=== PATIENT | female | born 1990 | race Caucasian/White ===

== ENCOUNTER 2017-04-26 16:23 | Emergency (ER) | payer BC ==
--- NOTE | 2017-04-26 16:38 | PDOC ---
Rapid Medical Evaluation Time Seen by Provider: 04/26/17 16:35 Medical Evaluation: Allergies Allergy/AdvReac Type Severity Reaction Status Date / Time No Known Allergies Allergy Verified 08/04/16 04:30 04/26/17 16:36 I have performed a brief in-person evaluation of this patient. The patient presents with a chief complaint of: Abd pain w/ n/v/d w/ weakness today. Multiple family members w/ similar sxs at home Pertinent physical exam findings:Stable but appears uncomfortable w/ ttp to epigastrium on exam I have ordered the following:cbc/chem/lipase/serum preg The patient will proceed to the ED for further evaluation. 04/26/17 16:38 04/26/17 16:39
[2017-04-26 16:40] VITALS: BMI 29.2
--- NOTE | 2017-04-26 17:03 | PDOC ---
Attending Attestation - Resident Resident Name: Alphonse Salazar - ED Attending Attestation I have performed the following: I have examined & evaluated the patient, The case was reviewed & discussed with the resident, I agree w/resident's findings & plan, Exceptions are as noted
[2017-04-26 17:23] LABS: ALBUMIN 3.8 g/dl (3.4-5.0); ANION GAP 11 (8-16); CALCIUM 8.1 mg/dL (8.5-10.1); CO2 22 mmol/L (21-32); GLUCOSE,RANDOM 78 mg/dL (74-106); SGOT/AST 14 U/L (15-37); SGPT/ALT 26 U/L (12-78)
[2017-04-26 17:25] LABS: ALK PHOS 55 U/L (45-117); BILIRUBIN,TOTAL 0.6 mg/dL (0.2-1.0); CREATININE 0.6 mg/dL (0.55-1.02); TOT PROT 7.5 g/dl (6.4-8.2)
[2017-04-26 17:32] LABS: BASOPHIL 0.5 % (0-2.0); EOSINOPHIL 1.3 % (0-4.5); MCH 28.1 pg (25.7-33.7); MCHC 32.3 g/dl (32.0-36.0); MEAN PLT VOLUME 10.7 fl (7.5-11.1); NEUTROPHILS 68.1 % (42.8-82.8); PLATELET COUNT 222 K/MM3 (134-434); RDW 12.9 % (11.6-15.6); WHITE BLOOD COUNT 12.3 K/mm3 (4.0-10.0)
--- NOTE | 2017-04-26 17:38 | PDOC ---
History of Present Illness - General History Source: Patient Exam Limitations: No Limitations - History of Present Illness Initial Comments: 04/26/17 19:14 The patient is a 27 year old female, with no significant past medical history, who presents to the emergency department complaining of cold-like symptoms for approx. one week. The patient reports dry cough, runny nose and congestion. The patient states the cold like symptoms have been on and off for the past week and she reports one episode of nausea with vomit. She states her son at home and niece are currently sick with similar cold like symptoms. She denies chest pain or shortness of breath. She denies recent fever, chills, headache or dizziness. She denies recent diarrhea or constipation. <Carlos Alberto Brian - Last Filed: 04/26/17 19:24> <Kishan Barraza - Last Filed: 04/27/17 00:26> - General Chief Complaint: Pain Stated Complaint: ABD PAIN Time Seen by Provider: 04/26/17 16:35 Past History <Carlos Alberto Brian - Last Filed: 04/26/17 19:24> - Past Medical History Asthma: Yes COPD: No - Immunization History Immunization Up to Date: Yes - Suicide/Smoking/Psychosocial Hx Smoking Status: No Smoking History: Current some day smoker Have you smoked in the past 12 months: No Number of Cigarettes Smoked Daily: 5 Information on smoking cessation initiated: Yes 'Breaking Loose' booklet given: 04/26/17 Hx Alcohol Use: No Drug/Substance Use Hx: No Substance Use Type: None <Kishan Barraza - Last Filed: 04/27/17 00:26> - Past Medical History Allergies/Adverse Reactions: Allergies Allergy/AdvReac Type Severity Reaction Status Date / Time No Known Allergies Allergy Verified 04/26/17 16:39 Home Medications: Ambulatory Orders Ondansetron [Zofran Odt -] 4 mg SL BID #14 od.tablet 04/26/17 Review of Systems - Review of Systems Comments:: 04/26/17 19:24 ROS: A complete review of 10 out of 10 review of systems is taken and is negative apart from what is previously mentioned below and in the HPI. <Carlos Alberto Brian - Last Filed: 04/26/17 19:24> *Physical Exam - Vital Signs Last Vital Signs Temp Pulse Resp BP Pulse Ox 97.8 F 88 18 124/66 100 04/26/17 16:37 04/26/17 16:37 04/26/17 16:37 04/26/17 16:37 04/26/17 16:37 - Physical Exam Comments: 04/26/17 19:24 Vitals: Triage Vital signs reviewed General Appearance: no acute distress, well nourished well developed Eyes: Pupils equal reactive round, extraocular movement intact Nose: +Nasal congestion. Nares patent bilaterally; Throat: Posterior oropharynx without erythema, mucous membranes moist Neck: Supple; No Nucal rigidity Cardiac: Regular rate and rhythym, no murmurs, no rubs, no gallops Lungs: Clear to auscultation bilateral, good air movement bilaterally Skin: Warm and dry, no rashes or lesions, no rash, no petechiae <Carlos Alberto Brian - Last Filed: 04/26/17 19:24> - Vital Signs Last Vital Signs Temp Pulse Resp BP Pulse Ox 97.8 F 88 18 124/66 100 04/26/17 16:37 04/26/17 16:37 04/26/17 16:37 04/26/17 16:37 04/26/17 16:37 <Kishan Barraza - Last Filed: 04/27/17 00:26> ED Treatment Course - LABORATORY CBC & Chemistry Diagram: 04/26/17 16:45 04/26/17 16:45 - ADDITIONAL ORDERS Additional order review: Laboratory Results 04/26/17 04/26/17 04/26/17 17:55 16:45 16:45 Sodium Potassium Chloride Carbon Dioxide Anion Gap BUN Creatinine Creat Clearance w eGFR Random Glucose Calcium Total Bilirubin AST ALT Alkaline Phosphatase Total Protein Albumin Lipase 59 L Serum , Qual Negative Urine Color Ltyellow Urine Appearance Clear Urine pH 5.0 D Ur Specific [place] 1.010 Urine Protein Negative Urine Glucose (UA) Negative Urine Ketones Negative Urine Blood 1+ H Urine Nitrite Negative Urine Bilirubin Negative Urine Urobilinogen Negative Urine WBC (Auto) 1 Urine RBC (Auto) 2 Ur Epithelial Cells Rare Urine Mucus Rare 04/26/17 16:45 Sodium 139 Potassium 3.7 Chloride 106 Carbon Dioxide 22 Anion Gap 11 BUN 5 L D Creatinine 0.6 Creat Clearance w eGFR > 60 Random Glucose 78 Calcium 8.1 L Total Bilirubin 0.6 D AST 14 L ALT 26 D Alkaline Phosphatase 55 Total Protein 7.5 Albumin 3.8 Lipase Serum , Qual Urine Color Urine Appearance Urine pH Ur Specific [place] Urine Protein Urine Glucose (UA) Urine Ketones Urine Blood Urine Nitrite Urine Bilirubin Urine Urobilinogen Urine WBC (Auto) Urine RBC (Auto) Ur Epithelial Cells Urine Mucus 04/26/17 16:45 RBC 4.58 MCV 87.0 MCHC 32.3 RDW 12.9 MPV 10.7 Neutrophils % 68.1 Lymphocytes % 23.7 D Monocytes % 6.4 Eosinophils % 1.3 Basophils % 0.5 - Medications Given in the ED: ED Medications Discontinued Medications Generic Name Dose Route Start Last Admin Trade Name Thanhq PRN Reason Stop Dose Admin Acetaminophen 650 mg 04/26/17 17:39 04/26/17 18:04 Tylenol - PO 04/26/17 17:40 650 mg ONCE ONE Administration Ketorolac Tromethamine 30 mg 04/26/17 17:39 04/26/17 18:06 Toradol Injection - IM 04/26/17 17:40 Not Given ONCE ONE Ketorolac Tromethamine 30 mg 04/26/17 17:47 04/26/17 18:04 Toradol Injection - IVPUSH 04/26/17 17:48 30 mg ONCE ONE Administration Ondansetron HCl 8 mg 04/26/17 17:39 04/26/17 18:06 Zofran Odt - SL 04/26/17 17:40 Not Given ONCE ONE Ondansetron HCl 4 mg 04/26/17 17:46 04/26/17 18:05 Zofran Injection IVPUSH 04/26/17 17:47 4 mg ONCE ONE Administration Sodium Chloride 1,000 ml 04/26/17 17:48 04/26/17 18:05 Normal Saline - IV 04/26/17 17:49 1,000 ml ONCE ONE Administration <Carlos Alberto Brian - Last Filed: 04/26/17 19:24> - LABORATORY CBC & Chemistry Diagram: 04/26/17 16:45 04/26/17 16:45 - ADDITIONAL ORDERS Additional order review: 04/26/17 16:45 RBC 4.58 MCV 87.0 MCHC 32.3 RDW 12.9 MPV 10.7 Neutrophils % 68.1 Lymphocytes % 23.7 D Monocytes % 6.4 Eosinophils % 1.3 Basophils % 0.5 <Kishan Barraza - Last Filed: 04/27/17 00:26> Medical Decision Making - Medical Decision Making 04/27/17 00:25 Well-appearing no apparent distress history and examination consistent with upper respiratory infection. Status post fluid Zofran Toradol patient feels much better. No headache no neck stiffness no rash Patient will follow-up with her doctor this week Findings, the need for follow-up, strict return instructions discussed with patient. <Kishan Barraza - Last Filed: 04/27/17 00:26> *DC/Admit/Observation/Transfer - Attestations Scribe Attestion: 04/26/17 19:26 Documentation prepared by Carlos Alberto Brian, acting as hospitalist medical director for Kishan Barraza MD. <Carlos Alberto Brian - Last Filed: 04/26/17 19:24> - Discharge Dispostion Admit: No <Kishan Barraza - Last Filed: 04/27/17 00:26> Diagnosis at time of Disposition: Viral upper respiratory illness - Discharge Dispostion Disposition: HOME - Prescriptions Prescriptions: Ondansetron [Zofran Odt -] 4 mg SL BID #14 od.tablet - Patient Instructions Printed Discharge Instructions: DI for Viral Upper Respiratory Infection -- Adult Additional Instructions: Drink plenty fluids. Alternate Tylenol and Motrin every 3 hours as directed on package as needed for fever or body aches. Zofran as prescribed for nausea. Drink plenty fluids. Return to the emergency department for any severe headache neck stiffness rash if you feel very unwell or for any concerns. Follow-up with your doctor this week.
[2017-04-26] MEDS ORDERED: ACETAMINOPHEN 325 MG TABLET (FP) PO ONE (17:39)
[2017-04-26] MEDS ORDERED: KETOROLAC TROMETHAMINE 30 MG/1 ML VIAL IM ONE (17:39)
[2017-04-26] MEDS ORDERED: ONDANSETRON *ODT* 4 MG TABLET SL ONE (17:39)
[2017-04-26] MEDS ORDERED: ACETAMINOPHEN 325 MG TABLET (FP) ONE (17:44)
[2017-04-26] MEDS ORDERED: KETOROLAC TROMETHAMINE 30 MG/1 ML VIAL ONE (17:44)
[2017-04-26] MEDS ORDERED: ONDANSETRON 4 MG/2 ML VIAL ONE (17:45)
[2017-04-26] MEDS ORDERED: ONDANSETRON 4 MG/2 ML VIAL IVPUSH ONE (17:46)
[2017-04-26] MEDS ORDERED: KETOROLAC TROMETHAMINE 30 MG/1 ML VIAL IVPUSH ONE (17:47)
[2017-04-26] MEDS ORDERED: SODIUM CHLORIDE 0.9% 1000 ML INFUS.BAG IV ONE (17:48)
[2017-04-26 18:07] LABS: URINE APPEARANCE CLEAR; URINE BILIRUBIN NEGATIVE (NEGATIVE); URINE BLOOD 1+ (NEGATIVE); URINE COLOR LTYELLOW; URINE GLUCOSE (UA) NEGATIVE (NEGATIVE); URINE KETONE NEGATIVE (NEGATIVE); URINE NITRITE NEGATIVE (NEGATIVE); URINE PROTEIN NEGATIVE (NEGATIVE); URINE UROBILINOGEN NEGATIVE mg/dL (0.2-1.0)
[2017-04-26 18:09] LABS: URINE MUCUS RARE; URINE RBC 2; URINE WBC 1
[2017-04-26 20:11] VITALS: BP 117/70; PULSE 61; TEMP 97.6
[2017-04-26 22:38] LABS: URINE LEUK ESTERASE Negative (NEGATIVE)
== END 2017-04-26 19:30 | disposition home or self-care (01) ==
LOC: JER 16:23
PROC: 3E0333Z Introduction of Anti-inflammatory into Peripheral Vein, Percutaneous Approach (ICD-10-PCS; principal; 2017-04-26)
PROC: 3E033GC Introduction of Other Therapeutic Substance into Peripheral Vein, Percutaneous Approach (ICD-10-PCS; 2017-04-26)
DX: J06.9 Acute upper respiratory infection, unspecified (principal); B97.89 Other viral agents as the cause of diseases classified elsewhere
CPT/HCPCS: 36415; 80053; 81003; 81015; 83690; 84703; 85025; 99282-25

== ENCOUNTER 2017-11-13 09:56 | Day surgery (SDC) | payer BC ==
[2017-11-12 09:01] VITALS: BMI 27.4
[2017-11-13] MEDS ORDERED: PROPOFOL 20 ML ONE (10:08)
[2017-11-13 10:28] VITALS: TEMP 99
[2017-11-13 12:06] VITALS: BP 100/67; PULSE 81
--- NOTE | 2017-11-14 17:18 | PATH ---
Surgical Pathology Report Patient Name: RILEY ETIENNE [facility]. Rec. #: [id number] /Age/Gender: 1990 (Age: 27) / F Account: [id number] Location: [facility] Taken: 11/13/2017 Received: 11/13/2017 Reported: 11/14/2017 Physicians: Suzanne Shaffer M.D. Specimen(s) Received A: BX DUODENUM B: BX ANTRUM C: GE JUNCTION D: MED ESOPHAGUS Clinical History Dyspepsia, dysphagia Postoperative diagnosis: Rule out celiac disease, gastritis, rule out eosinophilic esophagitis Final Diagnosis A. DUODENUM, BIOPSY: DUODENAL MUCOSA WITH NO DIAGNOSTIC ABNORMALITIES. NO HISTOLOGIC EVIDENCE OF CELIAC DISEASE. B. ANTRUM, BIOPSY: GASTRIC MUCOSA WITH MILD CHRONIC GASTRITIS. IMMUNOSTAIN IS NEGATIVE FOR H. PYLORI ORGANISMS. C. GE JUNCTION, BIOPSY: GASTROESOPHAGEAL JUNCTIONAL MUCOSA WITH CHRONIC INFLAMMATION AND REFLUX ESOPHAGITIS. NEGATIVE FOR INTESTINAL METAPLASIA. A. MID ESOPHAGUS, BIOPSY: REFLUX ESOPHAGITIS. Electronically Signed Rose Marie Acevedo M.D. Gross Description A. Received in formalin, labeled "duodenum" are 2 roach, irregular portions of soft tissue measuring 0.2 cm. in greatest dimension. The specimens are submitted in toto in one cassette. B. Received in formalin, labeled "antrum" is a roach, irregular portion of soft tissue measuring 0.3 cm. in greatest dimension. The specimen is submitted in toto in one cassette. C. Received in formalin, labeled "GE junction" is a roach, irregular portion of soft tissue measuring 0.2 cm. in greatest dimension. The specimen is submitted in toto in one cassette. D. Received in formalin, labeled "mid esophagus" is a roach, irregular portion of soft tissue measuring 0.3 cm. in greatest dimension. The specimen is submitted in toto in one cassette. CATRACHITO/11/13/2017 shaw/11/13/2017
== END 2017-11-13 11:50 | disposition home or self-care (01) ==
LOC: FASU-ENDO 09:56
PROVIDERS: ATTEND Internal Medicine Gastroenterology
PROC: 0DB28ZX Excision of Middle Esophagus, Via Natural or Artificial Opening Endoscopic, Diagnostic (ICD-10-PCS; 2017-11-13)
PROC: 0DB48ZX Excision of Esophagogastric Junction, Via Natural or Artificial Opening Endoscopic, Diagnostic (ICD-10-PCS; 2017-11-13)
PROC: 0DB98ZX Excision of Duodenum, Via Natural or Artificial Opening Endoscopic, Diagnostic (ICD-10-PCS; principal; 2017-11-13 10:58)
PROC: 0DB68ZX Excision of Stomach, Via Natural or Artificial Opening Endoscopic, Diagnostic (ICD-10-PCS; 2017-11-13 10:58)
DX: K29.50 Unspecified chronic gastritis without bleeding (principal); R13.10 Dysphagia, unspecified; R10.13 Epigastric pain; K21.0 Gastro-esophageal reflux disease with esophagitis
CPT/HCPCS: 84703; 88305-TC; 88342-TC

== ENCOUNTER 2018-04-13 22:56 | Emergency (ER) | payer BC, OTHER ==
[2018-04-13 23:26] VITALS: BP 138/85; PULSE 78; TEMP 98; BMI 12.8
--- NOTE | 2018-04-14 00:20 | PDOC ---
Attending Attestation - Resident Resident Name: Cristhian Lo - ED Attending Attestation I have performed the following: I have examined & evaluated the patient, The case was reviewed & discussed with the resident, I agree w/resident's findings & plan
[2018-04-14] MEDS ORDERED: SODIUM CHLORIDE 0.9% 1000 ML INFUS.BAG IV ONE (00:59)
[2018-04-14] MEDS ORDERED: methylPREDNISolone NA SUCC 125 MG/2 ML VIAL IVPUSH ONE (00:59)
[2018-04-14] MEDS ORDERED: FAMOTIDINE 20 MG/50 ML IVPB 20 MG/50 ML MG IVPB ONE (00:59)
[2018-04-14 01:34] LABS: BASO % 0.6 % (0-2.0); EOS % 6.7 % (0-4.5); HEMATOCRIT 37.2 % (32.4-45.2); HEMOGLOBIN 12.8 GM/dL (10.7-15.3); LYMPH % 31.5 % (8-40); MCHC 34.5 g/dl (32.0-36.0); MEAN PLT VOLUME 10.6 fl (7.5-11.1); MONO % 6.1 % (3.8-10.2); NEUT % 55.1 % (42.8-82.8); PLATELET COUNT 241 K/MM3 (134-434); RBC 4.27 M/mm3 (3.60-5.2); RDW 12.5 % (11.6-15.6); WHITE BLOOD COUNT 8.4 K/mm3 (4.0-10.0)
[2018-04-14 02:00] LABS: ALBUMIN 4.2 g/dl (3.4-5.0); ALK PHOS 59 U/L (45-117); ANION GAP 6 MMOL/L (8-16); BILIRUBIN,TOTAL 0.3 mg/dL (0.2-1); BLOOD UREA NITROGEN 13 mg/dL (7-18); CALCIUM 8.6 mg/dL (8.5-10.1); CHLORIDE 104 mmol/L (98-107); CO2 27 mmol/L (21-32); CREATININE 0.7 mg/dL (0.55-1.3); GLUCOSE,RANDOM 77 mg/dL (74-106); POTASSIUM 3.9 mmol/L (3.5-5.1); SGOT/AST 28 U/L (15-37); SGPT/ALT 32 U/L (13-61); SODIUM 137 mmol/L (136-145); TOT PROT 8.2 g/dl (6.4-8.2)
[2018-04-14] MEDS ORDERED: methylPREDNISolone NA SUCC 125 MG/2 ML VIAL ONE (02:08)
[2018-04-14] MEDS ORDERED: PANTOPRAZOLE SODIUM 40 MG/100 ML BAG IVPB ONE (02:08)
--- NOTE | 2018-04-14 03:03 | PDOC ---
History of Present Illness - General Chief Complaint: Choking Sensation Stated Complaint: WEAKNESS Time Seen by Provider: 04/14/18 00:18 History Source: Patient Exam Limitations: No Limitations - History of Present Illness Initial Comments: 04/14/18 02:56 The patient is a 28F with a PMH of egg allergy who presents to the ER with complaints of something stuck in her throat. The patient states that she's had episodes in the past where food gets stuck in her throat, she chokes, vomits the food, then feels better. She states that today, she had a similar episode except that she felt like her esophagus is tightening. She admits to eating food with eggs in it and is not sure if she had an allergic reaction but she took 25 benadryl and still felt some tightness. She denies CP, SOB, wheezing, hives, changes in vision, and difficulty breathing. Past History - Past Medical History Allergies/Adverse Reactions: Allergies Allergy/AdvReac Type Severity Reaction Status Date / Time egg Allergy Verified 04/13/18 23:26 No Known Drug Allergies Allergy Verified 04/13/18 23:26 Home Medications: Ambulatory Orders Methylprednisolone [Medrol Dose Ryan] 4 mg PO ASDIR #21 tablet 04/14/18 Anemia: Yes (TREATED WITH IRON A FEW YEARS AGO) Asthma: No Cancer: No Cardiac Disorders: No CVA: No COPD: No CHF: No Dementia: No Diabetes: No GI Disorders: Yes (GERD) Disorders: No HTN: No Hypercholesterolemia: No Liver Disease: No Seizures: No Thyroid Disease: No - Surgical History Abdominal Surgery: No Appendectomy: No Cardiac Surgery: No Cholecystectomy: No Lung Surgery: No Neurologic Surgery: No Orthopedic Surgery: No - Immunization History Immunization Up to Date: Yes - Suicide/Smoking/Psychosocial Hx Smoking Status: No Smoking History: Current every day smoker Have you smoked in the past 12 months: Yes Number of Cigarettes Smoked Daily: 1 Information on smoking cessation initiated: No 'Breaking Loose' booklet given: 04/26/17 Hx Alcohol Use: No Drug/Substance Use Hx: No Substance Use Type: None Hx Substance Use Treatment: No Review of Systems - Review of Systems Able to Perform ROS?: Yes Comments:: 04/14/18 03:00 GENERAL/CONSTITUTIONAL: No fever or chills. No weakness. HEAD, EYES, EARS, NOSE AND THROAT: No change in vision. No ear pain or discharge. No sore throat. CARDIOVASCULAR: No chest pain, palpitations, or lightheadedness. RESPIRATORY: No cough, wheezing, shortness of breath, or hemoptysis. GASTROINTESTINAL: Positive for "tightness in esophagus". No current nausea, vomiting, diarrhea, constipation, or abdominal pain. GENITOURINARY: No dysuria, frequency, hematuria, or change in urination. MUSCULOSKELETAL: No joint or muscle swelling or pain. No neck or back pain. SKIN: No rash or lesions. NEUROLOGIC: No headache, numbness, tingling, focal weakness, loss of consciousness, or change in strength/sensation. Is the patient limited E[place]an proficient: No *Physical Exam - Vital Signs Last Vital Signs Temp Pulse Resp BP Pulse Ox 98 F 78 18 138/85 100 04/13/18 23:22 04/13/18 23:22 04/13/18 23:22 04/13/18 23:22 04/13/18 23:22 - Physical Exam Comments: 04/14/18 03:03 GENERAL: Well developed, well nourished. Awake and alert. No acute distress. HEENT: Normocephalic, atraumatic. Hearing grossly normal. Moist mucous membranes. PERRLA, EOMI. No conjunctival pallor. Sclera are non-icteric. NECK: Supple. Full ROM. CARDIOVASCULAR: Regular rate and rhythm. No murmurs, rubs, or gallops. PULMONARY: No evidence of respiratory distress. Lungs clear to auscultation bilaterally. No wheezing, rales or rhonchi. ABDOMINAL: Soft. Non-tender. Non-distended. No rebound or guarding. GENITOURINARY: No CVA tenderness bilaterally. MUSCULOSKELETAL: Normal range of motion at all joints. No bony deformities or tenderness. EXTREMITIES: No cyanosis. No clubbing. No edema. No calf tenderness or swelling. SKIN: Warm and dry. Normal capillary refill. No rashes. No jaundice. NEUROLOGICAL: Alert, awake, appropriate. Cranial nerves 2-12 grossly intact. Normal speech. Gait is normal without ataxia. PSYCHIATRIC: Cooperative. Good eye contact. Appropriate mood and affect. ED Treatment Course - LABORATORY CBC & Chemistry Diagram: 04/14/18 01:29 04/14/18 01:29 - ADDITIONAL ORDERS Additional order review: Laboratory Results 04/14/18 01:29 Sodium 137 Potassium 3.9 Chloride 104 Carbon Dioxide 27 Anion Gap 6 L BUN 13 Creatinine 0.7 Creat Clearance w eGFR > 60 Random Glucose 77 Calcium 8.6 Total Bilirubin 0.3 AST 28 ALT 32 Alkaline Phosphatase 59 Total Protein 8.2 Albumin 4.2 04/14/18 01:29 RBC 4.27 MCV 87.0 MCHC 34.5 RDW 12.5 MPV 10.6 Neutrophils % 55.1 Lymphocytes % 31.5 D Monocytes % 6.1 Eosinophils % 6.7 H D Basophils % 0.6 - Medications Given in the ED: ED Medications Discontinued Medications Generic Name Dose Route Start Last Admin Trade Name Freq PRN Reason Stop Dose Admin Famotidine/Sodium Chloride 20 mg in 50 mls @ 100 mls/hr 04/14/18 00:59 02:15 Pepcid 20 Mg Premixed Ivpb - IVPB 04/14/18 01:28 100 mls/hr ONCE ONE Administration Methylprednisolone Sodium Succinate 125 mg 04/14/18 00:59 04/14/18 02:15 Solu-Medrol - IVPUSH 04/14/18 01:00 125 mg ONCE ONE Administration Sodium Chloride 1,000 ml 04/14/18 00:59 04/14/18 02:15 Normal Saline - IV 04/14/18 01:00 1,000 ml ONCE ONE Administration Medical Decision Making - Medical Decision Making 04/14/18 03:03 The patient is a 28F with a PMH of upper GI problem who presents to the ER after having a choking episode with residual choking sensation, concerning for impaction vs allergic reaction to egg. Pt already took benadryl so I have given pepcid and solumedrol. Basic labs negative. CBC significant for mild eosinphilia , agreeing with possible allergic reaction. Will monitor closely. 04/14/18 03:46 Pt states she feels much better post-medications. Will d/c with medrol dose pack , PCP, and GI f/u. *DC/Admit/Observation/Transfer Diagnosis at time of Disposition: Sensation, choking - Discharge Dispostion Disposition: HOME Condition at time of disposition: Stable Decision to Admit order: No - Prescriptions Prescriptions: Methylprednisolone [Medrol Dose Ryan] 4 mg PO ASDIR #21 tablet - Referrals Referrals: Mirza Blake [Primary Care Provider] - - Patient Instructions Printed Discharge Instructions: DI for Esophagitis Additional Instructions: Please follow up with your primary care physician in 1-2 days. Please also follow up with your GI doctor in 1-3 days. Please take your medications as prescribed. Please return to the ER if you have any signs or symptoms of chest pain, shortness of breath, uncontrollable fever, chills, nausea, vomiting, numbness, tingling, or weakness in any part of your body, changes in vision, or slurred speech. Please return to the ER if symptoms persist, worsen, or new symptoms arise. - Post Discharge Activity
--- NOTE | 2018-04-14 06:48 | PDOC ---
Attending Attestation - Resident Resident Name: Cristhian Lo - ED Attending Attestation I have performed the following: I have examined & evaluated the patient, The case was reviewed & discussed with the resident, I agree w/resident's findings & plan, Exceptions are as noted - HPI HPI: 04/14/18 06:45 choking sensation - Physicial Exam PE: 04/14/18 06:47 unremarkable - Medical Decision Making 04/14/18 06:47 recurrent upper Gi complaints of unclear etiology ?allergy
== END 2018-04-14 04:10 | disposition home or self-care (01) ==
LOC: JER 22:56
PROC: 3E033GC Introduction of Other Therapeutic Substance into Peripheral Vein, Percutaneous Approach (ICD-10-PCS; principal; 2018-04-13)
PROC: 3E0333Z Introduction of Anti-inflammatory into Peripheral Vein, Percutaneous Approach (ICD-10-PCS; 2018-04-13)
DX: R09.89 Other specified symptoms and signs involving the circulatory and respiratory systems (principal); Z86.2 Personal history of diseases of the blood and blood-forming organs and certain disorders involving the immune mechanism; Z91.012 Allergy to eggs
CPT/HCPCS: 36415; 80053; 85025; 96365; 96375; 99281-25; J7030

== ENCOUNTER 2021-06-12 17:08 | Emergency (ER) | payer MEDICARE, OTHER ==
[2021-06-12 17:18] VITALS: BP 115/68; PULSE 85; TEMP 98.7; BMI 31.1
[2021-06-12] MEDS ORDERED: DEXAMETHASONE SOD PHOSPHATE 10 MG/1 ML VIAL IM ONE (19:18)
[2021-06-12] MEDS ORDERED: AMOX TR/POT CLAV 875MG/125MG TABLETS (FP) PO ONE (19:18)
[2021-06-12] MEDS ORDERED: ACETAMINOPHEN 500 MG TABLET (FP) PO ONE (19:39)
[2021-06-12] MEDS ORDERED: ACETAMINOPHEN 500 MG TABLET (FP) ONE (19:59)
[2021-06-12] MEDS ORDERED: AMOX TR/POT CLAV 875MG/125MG TABLETS (FP) ONE (19:59)
[2021-06-12] MEDS ORDERED: DEXAMETHASONE SOD PHOSPHATE 10 MG/1 ML VIAL ONE (19:59)
[2021-06-12] MEDS ORDERED: IBUPROFEN 600 MG TABLET (FP) PO ONE ×2 (21:32→21:33)
== END 2021-06-12 21:56 | disposition home or self-care (01) ==
LOC: JER 17:08
PROC: 3E023GC Introduction of Other Therapeutic Substance into Muscle, Percutaneous Approach (ICD-10-PCS; principal; 2021-06-12)
DX: U07.1 COVID-19 (principal); J02.9 Acute pharyngitis, unspecified; J03.90 Acute tonsillitis, unspecified
CPT/HCPCS: 87070; 99284-25; J1100

== ENCOUNTER 2023-07-17 23:12 | Emergency (ER) | payer BC, OTHER ==
[2023-07-17 23:19] VITALS: BP 135/85; PULSE 68; RESP 20; TEMP 98; BMI 32.0
[2023-07-18] MEDS ORDERED: ACETAMINOPHEN INJECTION 100 ML IVPB ONE (00:32)
[2023-07-18] MEDS ORDERED: ONDANSETRON 4 MG/2 ML VIAL ONE (00:32)
[2023-07-18] MEDS: ACETAMINOPHEN 1000 MG/100 ML BAG IVPB ONE (00:36)
[2023-07-18] MEDS: ONDANSETRON 4 MG/2 ML VIAL IVPUSH ONE (00:36)
[2023-07-18 01:26] LABS: BASO % 0.6 % (0-2.0); EOS % 4.6 % (0-4.5); HEMATOCRIT 34.9 % (32.4-45.2); HEMOGLOBIN 11.5 GM/dL (10.7-15.3); LYMPH % 33.3 % (8-40); MCH 29.3 pg (25.7-33.7); MEAN CELL VOLUME 88.7 fl (80-96); MEAN PLT VOLUME 10.2 fl (7.5-11.1); MONO % 9.2 % (3.8-10.2); NEUT % 52.3 % (42.8-82.8); PLATELET COUNT 262 10^3/uL (134-434); RBC 3.93 M/mm3 (3.60-5.2); RDW 12.7 % (11.6-15.6); URINE APPEARANCE CLEAR; URINE BILIRUBIN NEGATIVE (NEGATIVE); URINE COLOR YELLOW; URINE GLUCOSE (UA) NEGATIVE (NEGATIVE); URINE KETONE NEGATIVE (NEGATIVE); URINE LEUK ESTERASE NEGATIVE (NEGATIVE); URINE NITRITE NEGATIVE (NEGATIVE); URINE PROTEIN NEGATIVE (NEGATIVE); URINE UROBILINOGEN 0.2 mg/dL (0.2-1.0); WHITE BLOOD COUNT 9.9 K/mm3 (4.0-10.0)
[2023-07-18 01:33] LABS: INR 0.95 (0.83-1.09)
[2023-07-18 01:35] LABS: ACTIVATED PTT 30.3 SECONDS (25.2-36.5)
[2023-07-18 01:45] LABS: POTASSIUM 3.5 mmol/L (3.5-5.1)
[2023-07-18 01:47] LABS: CALCIUM 8.4 mg/dL (8.5-10.1)
[2023-07-18 01:48] LABS: ALBUMIN 3.4 g/dl (3.4-5.0); BLOOD UREA NITROGEN 14.7 mg/dL (7-18)
[2023-07-18 01:50] LABS: CREATININE 0.7 mg/dL (0.55-1.3)
[2023-07-18 01:52] LABS: BILIRUBIN,TOTAL 0.2 mg/dL (0.2-1); TOT PROT 7.2 g/dl (6.4-8.2)
[2023-07-18] MEDS ORDERED: KETOROLAC TROMETHAMINE 15 MG/ML VIAL ONE (04:57)
[2023-07-18] MEDS: KETOROLAC TROMETHAMINE 15 MG/ML VIAL IVPUSH ONE (05:11)
== END 2023-07-18 06:06 | disposition home or self-care (01) ==
LOC: JER 23:12
PROC: 3E033NZ Introduction of Analgesics, Hypnotics, Sedatives into Peripheral Vein, Percutaneous Approach (ICD-10-PCS; principal; 2023-07-18)
PROC: 3E033GC Introduction of Other Therapeutic Substance into Peripheral Vein, Percutaneous Approach (ICD-10-PCS; 2023-07-18)
PROC: 3E033GC Introduction of Other Therapeutic Substance into Peripheral Vein, Percutaneous Approach (ICD-10-PCS; 2023-07-18)
DX: R10.31 Right lower quadrant pain (principal); R11.2 Nausea with vomiting, unspecified
CPT/HCPCS: 36415; 74177-TC; 76830-TC; 80053; 81003; 84703; 85025; 85610; 85730; 86850; 86900; 86901; 87086; 93005; 93010; 99285-25; J0131

== ENCOUNTER 2023-08-16 19:46 | Emergency (ER) | payer BC, OTHER ==
[2023-08-16 19:50] VITALS: BP 124/74; PULSE 65; RESP 18; TEMP 98.2; BMI 31.1
[2023-08-16] MEDS ORDERED: ACETAMINOPHEN 325 MG TABLET (FP) ONE (21:27)
[2023-08-16] MEDS: ACETAMINOPHEN 500 MG TABLET (FP) PO ONE ×2 (21:28→21:46)
[2023-08-16] MEDS ORDERED: LIDOCAINE HCL/PF 1% SDV 5ML VIAL ONE (22:55)
[2023-08-17] MEDS ORDERED: DIPHTH,PERTUSS(ACELL),TET 0.5 ML DISP.SYRIN IM ONE (01:16)
[2023-08-17] MEDS: DIPHTH,PERTUSS(ACELL),TET 0.5 ML DISP.SYRIN IM ONE (01:18)
== END 2023-08-17 01:32 | disposition home or self-care (01) ==
LOC: JER 19:46
PROC: 0HQGXZZ Repair Left Hand Skin, External Approach (ICD-10-PCS; principal; 2023-08-16)
PROC: 3E0234Z Introduction of Serum, Toxoid and Vaccine into Muscle, Percutaneous Approach (ICD-10-PCS; 2023-08-16)
DX: S61.012A Laceration without foreign body of left thumb without damage to nail, initial encounter (principal); S61.213A Laceration without foreign body of left middle finger without damage to nail, initial encounter; W25.XXXA Contact with sharp glass, initial encounter
CPT/HCPCS: 73130-TC-LT-FY; 73140-TC-LT-FY; 90715; 99283-25

== ENCOUNTER 2023-08-25 18:14 | Emergency (ER) | payer OTHER ==
[2023-08-25 18:23] VITALS: BP 124/85; PULSE 90; RESP 18; TEMP 97.8; BMI 32.0
[2023-08-25] MEDS ORDERED: IBUPROFEN 600 MG TABLET (FP) PO ONE (18:50)
[2023-08-25] MEDS: IBUPROFEN 600 MG TABLET (FP) PO ONE (18:52)
== END 2023-08-25 19:17 | disposition home or self-care (01) ==
LOC: JERFT 18:14
DX: Z48.02 Encounter for removal of sutures (principal); R20.2 Paresthesia of skin
CPT/HCPCS: 99283-25